=== PATIENT | male | born 1970 | race Caucasian/White ===

== ENCOUNTER 2021-06-11 19:23 | Emergency (ER) | payer BC ==
[2021-06-11] MEDS ORDERED: MORPHINE SULFATE 4 MG/ML SYRINGE IM STA (20:03)
--- NOTE | 2021-06-11 21:23 | XR ---
EXAMINATION TYPE: XR humerus RT DATE OF EXAM: 06/11/2021 COMPARISON: NONE HISTORY: Fall. Pain TECHNIQUE: 2 views FINDINGS: There is anterior dislocation of the glenohumeral joint. I see no fracture line. IMPRESSION: Anterior shoulder joint dislocation. No evidence of elbow fracture.
--- NOTE | 2021-06-11 21:23 | XR ---
EXAMINATION TYPE: XR shoulder complete RT DATE OF EXAM: 06/11/2021 COMPARISON: NONE HISTORY: Fall. Pain TECHNIQUE: 3 views FINDINGS: There is anterior dislocation of the glenohumeral joint. I see no fracture. Scapula is inta ct. IMPRESSION: Anterior shoulder joint dislocation.
--- NOTE | 2021-06-11 21:43 | ED ---
Upper Extremity HPI - General Source: patient, RN notes reviewed Mode of arrival: ambulatory <Nery Gregory - Last Filed: 06/12/21 00:22> <Kaushik Cavazos - Last Filed: 06/12/21 00:29> - General Chief Complaint: Extremity Injury, Upper Stated Complaint: Fall 8 Ft,R shoulder injury Time Seen by Provider: 06/11/21 19:44 - History of Present Illness Initial Comments: Patient is a 51-year-old male presenting to the emergency department with complaints of right shoulder pain after he fell just prior to arrival. Patient states he was attempting to climb up the ladder on his dear blind when he went to reach for another step and the step broke off, he fell mostly landing on his right shoulder. He was about 7-8 feet up. Denies loss of consciousness, did not hit his head. His only complaint today is right shoulder pain. He states he felt a little soreness in his left hip when he got up, but is able to ambulate without difficulty. He denies any chest pain or shortness of breath, no rib pain, no abdominal pain. Denies any nausea or vomiting. He is not on blood thinners. He has no further complaints at this time. (Nery Gregory) - Related Data Allergies Allergy/AdvReac Type Severity Reaction Status Date / Time No Known Allergies Allergy Verified 06/11/21 19:32 Review of Systems ROS Other: All systems not noted in ROS Statement are negative. <Nery Gregory - Last Filed: 06/12/21 00:22> ROS Other: All systems not noted in ROS Statement are negative. <Kaushik Cavazos - Last Filed: 06/12/21 00:29> ROS Statement: Those systems with pertinent positive or pertinent negative responses have been documented in the HPI. Past Medical History Past Medical History: No Reported History History of Any Multi-Drug Resistant Organisms: None Reported Past Surgical History: No Surgical Hx Reported Past Psychological History: No Psychological Hx Reported Smoking Status: Never smoker Past Alcohol Use History: Occasional Past Drug Use History: None Reported <Nery Gregory - Last Filed: 06/12/21 00:22> General Exam <Nery Gregory - Last Filed: 06/12/21 00:22> General appearance: alert, in no apparent distress Head exam: Present: atraumatic, normocephalic, normal inspection Eye exam: Present: normal appearance, PERRL, EOMI. Absent: scleral icterus, conjunctival injection, periorbital swelling ENT exam: Present: normal exam, mucous membranes moist Neck exam: Present: normal inspection. Absent: tenderness, meningismus, lymphadenopathy Respiratory exam: Present: normal lung sounds bilaterally. Absent: respiratory distress, wheezes, rales, rhonchi, stridor Cardiovascular Exam: Present: regular rate, normal rhythm, normal heart sounds. Absent: systolic murmur, diastolic murmur, rubs, gallop, clicks GI/Abdominal exam: Present: soft, normal bowel sounds. Absent: distended, tenderness, guarding, rebound, rigid Extremities exam: Present: normal inspection, full ROM, normal capillary refill. Absent: tenderness, pedal edema, joint swelling, calf tenderness Back exam: Present: normal inspection Neurological exam: Present: alert, oriented X3, CN II-XII intact Psychiatric exam: Present: normal affect, normal mood Skin exam: Present: warm, dry, intact, normal color. Absent: rash <Kaushik Cavazos - Last Filed: 06/12/21 00:29> - General Exam Comments Initial Comments: GENERAL: Patient is well-developed and well-nourished. Patient is nontoxic and in mild distress. HEAD: Atraumatic, normocephalic. He has no hematomas. EYES: Pupils equal round and reactive to light, extraocular movements intact, sclera anicteric, conjunctiva are normal. Eyelids were unremarkable. ENT: Nares patent, oropharynx clear without exudates. Moist mucous membranes. NECK: Normal range of motion, supple without lymphadenopathy or JVD. No midline tenderness. LUNGS: Unlabored respirations. Breath sounds clear to auscultation bilaterally and equal. No wheezes rales or rhonchi. HEART: Regular rate and rhythm without murmurs, rubs or gallops. ABDOMEN: Soft, nontender, normoactive bowel sounds. No guarding, no rebound. No masses appreciated. : Deferred MUSCULOSKELETAL: Patient has pain throughout the anterior right shoulder joint, he is unable to move the joint secondary to pain, deformity at the joint. He is neurovascular intact. Rest of extremities with adequate strength and normal range of motion, no pitting or edema. No clubbing or cyanosis. NEUROLOGICAL: Patient is alert and oriented x 3. Motor and sensory are also intact. Cranial nerves II through XII grossly intact. Symmetrical smile. Normal speech, normal gait. PSYCH: Normal mood, normal affect. SKIN: Warm, Dry, normal turgor, no rashes or lesions noted. (Nery Gregory) Course <Kaushik Cavazos - Last Filed: 06/12/21 00:29> Vital Signs 06/11/21 06/11/21 06/11/21 19:28 21:23 22:25 Temperature 98 F Pulse Rate 87 87 92 Respiratory 18 20 20 Rate Blood Pressure 141/90 136/65 138/57 O2 Sat by Pulse 98 95 95 Oximetry 06/11/21 06/11/21 06/11/21 22:37 22:41 22:46 Temperature Pulse Rate 96 90 85 Respiratory 20 20 22 Rate Blood Pressure 124/79 99/28 98/74 O2 Sat by Pulse 96 93 L 92 L Oximetry 06/11/21 06/11/21 06/11/21 22:52 22:57 23:07 Temperature Pulse Rate 97 94 Respiratory 22 12 20 Rate Blood Pressure 109/95 135/73 O2 Sat by Pulse 96 98 Oximetry 06/11/21 06/11/21 06/11/21 23:22 23:38 23:53 Temperature Pulse Rate 91 94 89 Respiratory 20 20 20 Rate Blood Pressure 163/100 148/60 130/85 O2 Sat by Pulse 98 98 96 Oximetry - Reevaluation(s) Reevaluation #1: 06/12/21 00:29 Medical records reviewed Patient had conscious sedation with successful shoulder dislocation which is splinted Patient awake and alert after sedation, able ambulate without significant difficulty, no significant complaints (Kaushik Cavazos) Procedures - Orthopedic Joint Reduction Joint #1 Consent Obtained: verbal consent, written consent Side: right Joint Reduction Location: shoulder Analgesia: procedural sedation Shoulder Technique Used (if applicable): traction/counter-traction, external rotation Post-Reduction Neuro Exam: intact Post-Reduction Vascular Exam: intact Post Reduction X-Ray Obtained: Yes Post Reduction X-Ray Results: reduced Splint Applied: Yes (sling applied) Patient Tolerated Procedure: well <Nery Gregory - Last Filed: 06/12/21 00:22> - Procedural Sedation Procedural Sedation Start Time: 22:40 Procedural Sedation Stop Time: 23:20 Indications: fracture/dislocation reduction ASA Class: I Mallampati Airway Score: 2 Preparation: monitor worker applied, pulse oximeter, capnometry used, supplemental O2 applied, reversal agents at bedside IV Propofol Dose (mgs): 260 Reversal Agents Used: Naloxone Complications: hypoventilation Interventions: oxygen applied, airway repositioned, use of reversal agent Patient Tolerated Procedure: well, no complications <Kaushik Cavazos - Last Filed: 06/12/21 00:29> Medical Decision Making <Nery Gregory - Last Filed: 06/12/21 00:22> - Medical Decision Making Patient is a 51-year-old male here with right shoulder pain after he fell of the posterior blind. Denies any other injuries today. The rest of exam is unremarkable. X-rays of the right shoulder reveal an anterior shoulder dislocation, no fracture seen. Patient was given conscious sedation, was able to reduce the shoulder without difficulty. Post reduction x-rays show normal alignment, no fractures. Patient was observed for an additional hour after the procedure, his vitals have remained stable, he feels well enough to go home. His brother is driving home. I did give him Tylenol 3 starter pack and tramadol for pain. He will continue to wear sling. Patient lives in the [facility], he will follow up with his orthopedic there. He is stable for discharge and he is in agreement with this plan of care. Case discussed with Dr. Cavazos. (Nery Gregory) Disposition Is patient prescribed a controlled substance at d/c from ED?: No Time of Disposition: 00:09 <Nery Gregory - Last Filed: 06/12/21 00:22> Is patient prescribed a controlled substance at d/c from ED?: No <Kaushik Cavazos - Last Filed: 06/12/21 00:29> Clinical Impression: Dislocation of right shoulder joint, Fall Disposition: HOME SELF-CARE Condition: Stable Instructions (If sedation given, give patient instructions): Shoulder Dislocation (ED), Moderate Sedation (ED) Additional Instructions: Please return to the Emergency Department if symptoms worsen or any other concerns. Alternate between Tylenol and Motrin for any discomfort. Apply ice to the shoulder 20 minutes at a time. Wear sling. Please follow up with orthopedics in your home town. Referrals: Nonstaff,Physician [Primary Care Provider] - 1-2 days
[2021-06-11] MEDS ORDERED: PROPOFOL 10 MG/ML 20 ML VIAL IV ONE (21:56)
[2021-06-11] MEDS ORDERED: MORPHINE SULFATE 4 MG/ML SYRINGE IVP STA (22:06)
--- NOTE | 2021-06-11 23:08 | XR ---
EXAMINATION TYPE: XR shoulder limited RT DATE OF EXAM: 06/11/2021 COMPARISON: Today HISTORY: Post reduction TECHNIQUE: Single view FINDINGS: I see no fracture nor dislocation. Glenohumeral joint is anatomic. IMPRESSION: Anatomic reduction. No fracture seen.
[2021-06-11] MEDS ORDERED: NALOXONE 0.4 MG/ML 1 ML VIAL IVP STA (23:10)
[2021-06-11 23:17] VITALS: RESP 20
[2021-06-12 00:04] VITALS: BP 130/85; PULSE 89
[2021-06-12] MEDS ORDERED: ACET/COD 300 MG/30 MG STARTER PACK 6 TAB BTL PO STA (00:07)
[2021-06-12] MEDS ORDERED: traMADol 50 MG STARTER PACK 3 TAB BTL PO STA (00:07)
[2021-06-12 00:46] VITALS: TEMP 98
== END 2021-06-12 00:46 | disposition home or self-care (01) ==
LOC: EC 19:23
DX: S43.004A Unspecified dislocation of right shoulder joint, initial encounter (principal); W11.XXXA Fall on and from ladder, initial encounter
CPT/HCPCS: 73020; 73030; 73060; 23650; 96374; 96375; 96372; 99284; J2270; J2310; J2704